=== PATIENT | male | born 1960 ===

== ENCOUNTER 2021-02-11 01:04 | Emergency (ER) | payer OTHER ==
[~2021-02-11] VITALS: Ht 172.7 cm; Wt 90.7 kg
[2021-02-11] MEDS ORDERED: NAMENDA5 MG (01:20)
[2021-02-11] MEDS ORDERED: COZAAR100 MG (01:20)
[2021-02-11] MEDS ORDERED: WELLBUTRIN XL150 M1 (01:24)
[2021-02-11] MEDS ORDERED: CEPHALEXIN500 M1 PO (03:35)
[2021-02-11] MEDS ORDERED: KETO10TA2 PO ×2 (03:35→03:37)
== END 2021-02-11 03:42 | disposition home or self-care (01) ==
LOC: ER 01:04
DX: S61.041A Puncture wound with foreign body of right thumb without damage to nail, initial encounter (principal); W25.XXXA Contact with sharp glass, initial encounter; Y93.89 Activity, other specified; Y92.89 Other specified places as the place of occurrence of the external cause; Y99.8 Other external cause status